=== PATIENT | male | born 1970 | race Caucasian/White ===

== ENCOUNTER 2017-09-10 03:22 | Emergency (ER) | payer OTHER ==
[~2017-09-10] VITALS: Ht 170.2 cm; Wt 102.9 kg
[~2017-09-10 03:22] MED LIST: ANDR1GEL TD; PRAV20 PO
[2017-09-10 03:32] VITALS: BP 175/105; PULSE 106; RESP 16; TEMP 97.2
[2017-09-10] MEDS ORDERED: testosterone IM (03:39)
[2017-09-10] MEDS ORDERED: TEST-25 IM (04:12)
[2017-09-10] MEDS ORDERED: LORazepam 1 MG TAB PO ONE (04:15)
[2017-09-10] MEDS ORDERED: CRANCAP2 PO (04:19)
[2017-09-10] MEDS ORDERED: VITA200C3 PO (04:19)
[2017-09-10] MEDS ORDERED: CREAPOW (04:19)
[2017-09-10] MEDS ORDERED: ARGENINE (04:19)
[2017-09-10] MEDS ORDERED: KRIL500C2 (04:19)
--- NOTE | 2017-09-10 04:43 | PD ---
HPI Chief Complaint: Psychiatric Symptoms Time Seen by Provider: 03:45 Travel History International Travel<30 days: No Contact w/Intl Traveler<30days: No Traveled to known affect area: No History of Present Illness HPI This is a 47 year old male who presents to the emergency department reporting that he is having a nervous breakdown. He says that for the past several months he's been under a lot of stress. His one son is having substance dependence problems and recently was in an accident and then subsequently ended up arrested. His other son who is deployed called this evening and said that he is getting . Additionally the patient reports that he's been very stressed out at work and that the holidays have been very stressful for him. He says tonight he couldn't get to sleep and he felt like his thoughts were racing. He started to have thoughts that he felt like hurting people. He had no specific thoughts of hurting anyone. He just felt like he wanted to beat someone up. He told his that he was having concerning thoughts and she brought him to the emergency department. He says that he would never hurt his and he would never hurt anyone else. He was very disturbed that he kept having those thoughts. He said he felt like he wanted someone to beat him up and that might make him feel better. PFSH Past Medical History High Cholesterol: Yes Chest Pain: Yes (FREQUENT PVC'S) Reproductive: Yes ("LOW TESTOSTERONE") Sleep Apnea: Yes (WEARS CPAP) Tetanus Vaccination: < 5 Years Past Surgical History Oral Surgery: Yes (MOLARS) Social History Alcohol Use: Yes (OCC) Tobacco Use: No (QUIT AGE 25) Substance Use: No Allergies-Medications (Allergen,Severity, Reaction): Coded Allergies: amlodipine (Unverified Adverse Reaction, Unknown, BODY PAIN, 09/10/17) PT DENIES EVER TAKING THIS MEDICATION ON 09/10/17 atorvastatin (Unverified Adverse Reaction, Unknown, BODY PAIN, 09/10/17) pravastatin (Unverified Adverse Reaction, Unknown, BODY PAIN, 09/10/17) simvastatin (Unverified Adverse Reaction, Unknown, BODY PAIN, 09/10/17) Reported Meds & Prescriptions Reported Meds & Active Scripts Active Ativan (Lorazepam) 1 Mg Tab 1 Mg PO Q8H PRN Reported Cranberry Urinary Comfort (Vitamins C & E) 1 Cap 1 Cap PO DAILY Vitamin E 200 Unit Cap 200 Units PO DAILY Krill Oil 500 Mg Capsule [Argenine] Creatine (Creatine (Bulk)) 100 % Pow [Testosterone] 1 Injection IM EVERY 2 WEEKS Review of Systems Except as stated in HPI: all other systems reviewed are Neg Physical Exam Narrative GENERAL:Well appearing, no acute distress SKIN: Focused skin assessment warm and dry. HEAD: Atraumatic. Normocephalic. EYES: Pupils equal and round. No injection or drainage. ENT: Moist mucous membranes NECK: Trachea midline. CARDIOVASCULAR: Regular rate and rhythm. No murmur appreciated. RESPIRATORY: Clear to auscultation. Breath sounds equal bilaterally. GASTROINTESTINAL: Abdomen soft, non-tender, nondistended. MUSCULOSKELETAL: No obvious deformities. NEUROLOGICAL: Awake and alert. No obvious cranial nerve deficits. Moving all extremities. PSYCHIATRIC: Tearful, anxious, some pressured speech. Preserved insight and judgment. Data Data Last Documented VS Vital Signs Date Time Temp Pulse Resp B/P (MAP) Pulse Ox O2 Delivery O2 Flow Rate FiO2 09/10/17 04:53 09/10/17 04:51 78 16 96 Room Air 09/10/17 03:32 97.2 Orders Orders Lorazepam (Ativan) (09/10/17 04:15) Ed Discharge Order (09/10/17 04:43) MDM Medical Decision Making Medical Screen Exam Complete: Yes Emergency Medical Condition: Yes Differential Diagnosis Adjustment reaction, anxiety, panic attack, bipolar disorder, psychosis Narrative Course This is a 47-year-old male who presents to the emergency department with anxiety and thoughts of aggression. He has no specific thoughts of hurting anyone but he says he feels very angry. He also has been having trouble sleeping. Several weeks ago he reports he was seen in the hospital for strokelike symptoms. At that time he had tingling all over his body. I suspect the patient is suffering with anxiety and intermittent panic attacks. He has a lot of insight into his feelings. He is very disturbed that he is having aggressive thoughts and he doesn't want hurt anyone. He says he would never hurt himself, his or anyone close to him. He just feels like his stress is getting out of control. I also spoke to his . His says they've been under a lot of stress. She doesn't think that he will hurt himself or others but she does think he needs help coping with his anxiety and his stress. We discussed the importance of him following up with a counselor and a psychiatrist. I don't think the patient meets Hernandez act criteria. I think he has good insight and judgment and can safely be treated as an outpatient. He is a . His plans to take him to the [facility] tomorrow to have a mental health evaluation which I think is an excellent plan. Patient was given Ativan here in the emergency department and feels significantly improved. He says he feels a lot better after talking to someone and crying. 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 I spoke to his specifically and they plan on locking all of the guns in a safe and the will only have access to the code. We specifically discussed if he feels at all worse or if his thoughts are worsening he should return to the emergency department immediately. His and him both are amenable to this plan. Patient will be discharged home. Diagnosis Primary Impression: Adjustment reaction with anxiety Patient Instructions: General Instructions Additional Instructions: If you have thoughts of hurting yourself or others or feel unsafe return to the emergency department. Follow up at the [facility] in the morning as discussed. Med/Other Pt SpecificInfo: No Change to Meds Scripts Lorazepam (Ativan) 1 Mg Tab 1 MG PO Q8H Y for ANXIETY AND/OR AGITATION, #10 TAB 0 Refills Prov: Faye Blanton MD 09/10/17 Disposition: 01 DISCHARGE HOME Condition: Stable Faye Blanton MD Sep 10, 2017 04:43
[2017-09-10] MEDS ORDERED: LORA-474 PO (04:50)
[2017-09-10 04:51] VITALS: BP 151/90; PULSE 78; RESP 16; O2SAT 96
== END 2017-09-10 04:55 | disposition home or self-care (01) ==
LOC: PHED 03:22
DX: F43.22 Adjustment disorder with anxiety (principal); E78.00 Pure hypercholesterolemia, unspecified; R07.9 Chest pain, unspecified
CPT/HCPCS: 99283